=== PATIENT | female | born 1980 | race Two or more races ===

== ENCOUNTER 2023-04-10 16:37 | Emergency (ER) | payer OTHER ==
[~2023-04-10] VITALS: Ht 165.1 cm; Wt 113.4 kg
[2023-04-10] MEDS ORDERED: IBUPROFEN 400 MG TABLET PO ONE (19:00)
[2023-04-10] MEDS ORDERED: PSEUDOEPHEDRINE HCL 30 MG TABLET PO ONE (19:00)
[2023-04-10] MEDS ORDERED: ACETAMINOPHEN ES 500 MG TABLET PO ONE (19:00)
[2023-04-10] MEDS ORDERED: ACETAMINOPHEN ES 500 MG TABLET ONE (19:23)
[2023-04-10] MEDS ORDERED: IBUPROFEN 400 MG TABLET ONE (19:23)
[2023-04-10] MEDS ORDERED: PSEUDOEPHEDRINE HCL 30 MG TABLET ONE (19:24)
[2023-04-10] MEDS ORDERED: PSEU120T83 PO (19:39)
[2023-04-10] MEDS ORDERED: CYCL5TAB PO (19:39)
[2023-04-10] MEDS ORDERED: NEOM28.38 TP (19:39)
[2023-04-10 20:09] VITALS: BP 151/97; TEMP 98.1; O2SAT 99
== END 2023-04-10 20:09 | disposition home or self-care (01) ==
LOC: ER 16:59
DX: S22.31XD Fracture of one rib, right side, subsequent encounter for fracture with routine healing (principal); R51.9 Headache, unspecified; S60.221A Contusion of right hand, initial encounter; H92.02 Otalgia, left ear; D64.9 Anemia, unspecified; Z79.899 Other long term (current) drug therapy; W10.0XXA Fall (on)(from) escalator, initial encounter; Y93.89 Activity, other specified; Y92.89 Other specified places as the place of occurrence of the external cause; Y99.8 Other external cause status
CPT/HCPCS: 70450-TC; 70480-TC; 71100-TC; 73130-TC

== ENCOUNTER 2023-11-15 12:10 | Emergency (ER) | payer MEDICAID, MEDICARE, OTHER ==
[~2023-11-15] VITALS: Ht 165.1 cm; Wt 111.6 kg
[~2023-11-15 12:10] MED LIST: CYCL5TAB PO; NEOM28.38 TP; PSEU120T83 PO
[2023-11-15] MEDS ORDERED: FUROSEMIDE 20 MG/2 ML VIAL ONE (13:14)
[2023-11-15] MEDS: FUROSEMIDE 40 MG/4 ML VIAL IV ONE (13:15)
[2023-11-15 13:34] LABS: CALCIUM, SERUM 8.4 mg/dL (8.5-10.1); CREATININE 0.8 mg/dL (0.6-1.3); POTASSIUM 3.4 mmol/L (3.5-5.1)
[2023-11-15] MEDS ORDERED: HYDR25TA4 PO (13:45)
[2023-11-15 13:49] LABS: ALBUMIN 3.1 g/dL (3.4-5.0); BILIRUBIN,DIRECT 0.1 mg/dL (0.0-0.2); BILIRUBIN,TOTAL 0.3 mg/dL (0.2-1.0); TOTAL PROTEIN, SERUM 7.3 g/dL (6.4-8.2)
[2023-11-15] MEDS ORDERED: POTASSIUM CHLORIDE 20 MEQ TAB.PRT.SR PO ONE (14:05)
[2023-11-15] MEDS: POTASSIUM CHLORIDE 20 MEQ TAB.PRT.SR PO ONE (14:11)
[2023-11-15 14:40] VITALS: BP 145/96; TEMP 98.6; O2SAT 99
[2023-11-15 15:01] LABS: BASOPHILS # (AUTO) 0.1 K/uL (0.0-0.2); BASOPHILS % (AUTO) 1.3 % (0.0-2.0); EOSINOPHILS % (AUTO) 0.8 % (0.0-6.0); HEMATOCRIT 28 % (33-45); HEMOGLOBIN 7.3 g/dL (11.5-14.8); LYMPHOCYTES # (AUTO) 3.8 K/uL (0.8-4.8); LYMPHOCYTES % (AUTO) 66.1 % (20.0-44.0); MEAN CORPUSCULAR HEMOGLOBIN 13 PG (26.0-33.0); MEAN CORPUSCULAR HGB CONC 26 g/dl (31.0-36.0); MEAN CORPUSCULAR VOLUME 50 fL (82-100); MONOCYTES # (AUTO) 0.2 K/uL (0.1-1.30); MONOCYTES % (AUTO) 4.1 % (2.0-12.0); NEUTROPHILS # (AUTO) 1.6 K/uL (1.8-8.9); NEUTROPHILS % (AUTO) 27.7 % (43.0-81.0); PLATELET COUNT (AUTO) 243 K/uL (150-450); RED BLOOD CELL COUNT(AUTO) 5.55 MIL/uL (4.0-5.2); RED CELL DISTRIBUTION WIDTH 23.4 % (11.5-15.0); WHITE BLOOD COUNT (AUTO) 5.7 K/uL (4.3-11.0)
[2023-11-15 18:02] LABS: ANISOCYTOSIS 1+; EOSINOPHILS % (MANUAL) 1 % (0-4); HYPOCHROMASIA 2+; LYMPHOCYTES % (MANUAL) 39 % (16-48); MONOCYTES % (MANUAL) 6 % (0-11.0); NEUTROPHILS % (MANUAL) 54 (42-76); PLATELET ESTIMATE ADEQUATE
[2023-11-15 18:03] LABS: TARGET CELLS 1+; TEAR DROP CELLS RARE
== END 2023-11-15 14:41 | disposition home or self-care (01) ==
LOC: ER 12:15
DX: I10 Essential (primary) hypertension (principal); R60.9 Edema, unspecified; D64.9 Anemia, unspecified
CPT/HCPCS: 99285; 96374; 71045; 93005; 85025; 80048; 80076; 85378; 36415; 83880; 85007; J1940

== ENCOUNTER 2024-04-17 20:13 | Emergency (ER) | payer MEDICAID ==
[~2024-04-17] VITALS: Ht 165.1 cm; Wt 66.7 kg
[~2024-04-17 20:13] MED LIST changes: +HYDR25TA4 PO
[2024-04-17 20:48] VITALS: BP 166/79; TEMP 98.5; O2SAT 100
== END 2024-04-17 21:35 | disposition home or self-care (01) ==
LOC: ER 20:15
DX: R10.2 Pelvic and perineal pain (principal); Z79.899 Other long term (current) drug therapy; W44.8XXA Other foreign body entering into or through a natural orifice, initial encounter; Y93.89 Activity, other specified; Y92.098 Other place in other non-institutional residence as the place of occurrence of the external cause; Y99.8 Other external cause status

== ENCOUNTER 2025-03-28 19:59 | Emergency (ER) | payer MEDICAID, MEDICARE, OTHER | END 2025-03-28 21:49 | disposition left against medical advice (07) | LOC: ER 20:05 | DX: Z11.3 Encounter for screening for infections with a predominantly sexual mode of transmission (principal); Z53.21 Procedure and treatment not carried out due to patient leaving prior to being seen by health care provider ==